=== PATIENT | male | born 2000 | race Caucasian/White ===

== ENCOUNTER 2021-10-20 14:28 | Emergency (ER) | payer BC ==
[2021-10-20 14:56] VITALS: BP 140/80; PULSE 95; TEMP 99.1; BMI 25.1
== END 2021-10-20 16:11 | disposition home or self-care (01) ==
LOC: FER 14:28
PROC: 0H9FXZZ Drainage of Right Hand Skin, External Approach (ICD-10-PCS; principal; 2021-10-20)
DX: L03.011 Cellulitis of right finger (principal)
CPT/HCPCS: 73140-TC-RT-FY; 87070; 87186; 87205; 99283-25